=== PATIENT | female | born 1990 | race African-American/Black ===

== ENCOUNTER 2019-12-11 07:37 | Outpatient (RCR) | payer BC, SELFPAY ==
[2019-12-10 16:54] LABS: Hematocrit 32.4 % (37.0-47.0); Hemoglobin 10.7 g/dL (12.0-15.0)
[2019-12-10 17:13] LABS: Glucose 1 Hour PP 50gm Dose 137 mg/dL
[2019-12-10 17:49] LABS: Vitamin D 25 Hydroxy 40.4 ng/mL
[2019-12-10 17:53] LABS: HIV 1/2 Ab P24 Ag Result Negative (Negative)
[2019-12-11] MEDS: RHO(D) IMMUNE GLOBULIN 300 MCG SYRINGE IM (15:01)
== END 2019-12-11 23:59 | disposition home or self-care (01) ==
LOC: ANHLAB 07:37
PROVIDERS: Visit Provider Obstetrics & Gynecology
DX: Z29.13 Encounter for prophylactic Rho(D) immune globulin (principal); Z11.4 Encounter for screening for human immunodeficiency virus [HIV]; O36.0990 Maternal care for other rhesus isoimmunization, unspecified trimester, not applicable or unspecified; Z3A.00 Weeks of gestation of pregnancy not specified
CPT/HCPCS: 36415; 82306; 82947; 85014; 85018; 85461; 86703; 90384; 96372; G0432; J2790

== ENCOUNTER 2019-12-16 08:57 | Outpatient (CLI) | payer BC, SELFPAY ==
[2019-12-16 09:57] LABS: Alanine Aminotransferase 181 U/L (4-35); Albumin Level 3.8 g/dL (3.5-5.1); Alkaline Phosphatase 145 U/L (38-126); Aspartate Amino Transferase 63 U/L (14-36); Bilirubin,Total 0.6 mg/dL (0.2-1.3)
[2019-12-16 10:06] LABS: Glucose Fasting Gestational 82 mg/dL (>/=95)
[2019-12-16 12:19] LABS: Glucose 1 Hour Gest 140 mg/dL (>/=180)
[2019-12-16 12:50] LABS: Glucose 2 Hour Gest 129 mg/dL (>/= 155)
[2019-12-16 13:53] LABS: Glucose 3 Hour Gest 110 mg/dL (>/=140)
[2019-12-23 16:44] LABS: Chenodeoxycholic Acid <0.5 umol/L (< OR = 3.9); Cholic Acid 1.3 umol/L (< OR = 2.8); Deoxycholic Acid <0.5 umol/L (< OR = 2.3); Total Bile Acids <1.5 umol/L (< OR = 8.3)
== END 2019-12-16 08:58 | disposition home or self-care (01) ==
LOC: ANHLAB 09:01
PROVIDERS: PCP Obstetrics & Gynecology; Visit Provider Obstetrics & Gynecology
DX: O26.86 Pruritic urticarial papules and plaques of pregnancy (PUPPP) (principal); Z3A.00 Weeks of gestation of pregnancy not specified; O99.810 Abnormal glucose complicating pregnancy
CPT/HCPCS: 36415; 80076; 82542; 82951; 82952

== ENCOUNTER 2019-12-17 15:17 | Outpatient (RCR) | payer BC, SELFPAY ==
[2019-12-17 16:18] VITALS: BP 105/68; PULSE 102
== END 2020-02-07 14:27 | disposition home or self-care (01) ==
LOC: ANHOBOP 15:17
PROVIDERS: PCP Obstetrics & Gynecology; Visit Provider Obstetrics & Gynecology
DX: O26.613 Liver and biliary tract disorders in pregnancy, third trimester (principal); Z3A.32 32 weeks gestation of pregnancy
CPT/HCPCS: 59025

== ENCOUNTER 2019-12-24 15:58 | Observation (INO) | payer BC, SELFPAY ==
[2019-12-24] VITALS (7 sets, daily range): BP systolic 109–120; BP diastolic 63–74; PULSE 89–103
[2019-12-24] MEDS: TERBUTALINE SULFATE 1 MG/ML VIAL 0.25 MG SUB-Q (17:11)
--- NOTE | 2020-01-01 11:20 | PM.OBTRLD ---
OB - Triage/Final Diagnosis Visit Information Reason for evaluation: threatened labor
== END 2019-12-24 18:45 | disposition home or self-care (01) ==
PROVIDERS: Admitting Provider Obstetrics & Gynecology Gynecology; PCP Obstetrics & Gynecology; Visit Provider Obstetrics & Gynecology Gynecology
DX: O47.9 False labor, unspecified (principal); Z3A.00 Weeks of gestation of pregnancy not specified
CPT/HCPCS: 96372; G0378; G0379; J3105

== ENCOUNTER 2019-12-27 07:43 | Outpatient (CLI) | payer BC, SELFPAY ==
[2019-12-27 08:50] LABS: Alanine Aminotransferase 206 U/L (4-35); Albumin Level 3.9 g/dL (3.5-5.1); Alkaline Phosphatase 157 U/L (38-126); Aspartate Amino Transferase 70 U/L (14-36); Bilirubin,Total 0.4 mg/dL (0.2-1.3)
== END 2019-12-27 07:44 | disposition home or self-care (01) ==
PROVIDERS: PCP Obstetrics & Gynecology; Visit Provider Obstetrics & Gynecology
DX: R79.9 Abnormal finding of blood chemistry, unspecified (principal)
CPT/HCPCS: 36415; 80076

== ENCOUNTER 2020-01-06 16:23 | Outpatient (CLI) | payer BC, SELFPAY ==
[2020-01-06 17:52] LABS: Hepatitis B Surface Antigen Negative (Negative)
[2020-01-06 17:58] LABS: HAV RESULT Negative (Negative); Hepatitis B Core IgM Result Negative (Negative)
[2020-01-06 18:10] LABS: Hepatitis C Virus Antibody Negative (Negative)
== END 2020-01-06 16:24 | disposition home or self-care (01) ==
LOC: ANHLAB 16:26
PROVIDERS: PCP Obstetrics & Gynecology; Visit Provider Obstetrics & Gynecology
DX: O26.613 Liver and biliary tract disorders in pregnancy, third trimester (principal); Z3A.00 Weeks of gestation of pregnancy not specified
CPT/HCPCS: 36415; 80074

== ENCOUNTER 2020-01-13 16:16 | Outpatient (CLI) | payer BC, SELFPAY ==
[2020-01-13 16:45] LABS: Hematocrit 35.6 % (37.0-47.0); Hemoglobin 11.8 g/dL (12.0-15.0); Mean Corpuscular HGB Conc 33.1 g/dl (32-36); Mean Corpuscular Hemoglobin 27.9 pg (26-34); Mean Corpuscular Volume 84.2 fl (80-100); Mean Platelet Volume 9.4 fl (7.4-10.4); Platelet Count Result 319 k/mm3 (150-375); Red Blood Count 4.23 M/mm3 (4.2-5.4); Red Cell Distribution Width 15.3 % (11.5-14.5); White Blood Count 12.2 K/mm3 (4.5-10.0)
[2020-01-13 16:57] LABS: Alanine Aminotransferase 67 U/L (4-35); Alkaline Phosphatase 152 U/L (38-126); Anion Gap 11 mmol/L (8-16); Aspartate Amino Transferase 35 U/L (14-36); Bilirubin,Total 0.4 mg/dL (0.2-1.3); Blood Urea Nitrogen 9 mg/dL (7-17); Calcium 9.5 mg/dL (8.4-10.2); Carbon Dioxide 22 mmol/L (22-30); Chloride 104 mmol/L (98-107); Estimated Glomerular Filt Rate > 60; Glucose 115 mg/dL (65-105); Potassium 3.8 mmol/L (3.4-5.0); Sodium 137 mmol/L (137-145)
== END 2020-01-13 16:17 | disposition home or self-care (01) ==
LOC: ANHLAB 16:18
PROVIDERS: PCP Obstetrics & Gynecology; Visit Provider Obstetrics & Gynecology Gynecology
DX: Z34.93 Encounter for supervision of normal pregnancy, unspecified, third trimester (principal); Z3A.00 Weeks of gestation of pregnancy not specified
CPT/HCPCS: 36415; 80053; 85027

== ENCOUNTER 2020-01-20 07:17 | Inpatient (IN) | payer BC, SELFPAY ==
[2020-01-20] VITALS (154 sets, daily range): BP systolic 87–140; BP diastolic 53–114; PULSE 69–165; TEMP 36.4–36.6; O2SAT 83–100; BMI 28.8
[2020-01-20 08:09] LABS: Basophils Percent Auto 0.2 % (0.2-1.2); Eosinophils Absolute Auto 0.1 K/mm3 (0-0.3); Eosinophils Percent Auto 1.1 % (0-4.4); Hematocrit 36.6 % (37.0-47.0); Hemoglobin 11.9 g/dL (12.0-15.0); Immature Granulocyte Absolute 0.09 K/mm3 (0.00-0.031); Immature Granulocyte Percent A 0.7 % (0-0.5); Lymphocytes Absolute Auto 1.46 K/mm3 (0.9-3.2); Lymphocytes Percent Auto 11.3 % (18.3-44.2); Mean Corpuscular HGB Conc 32.5 g/dl (32-36); Mean Corpuscular Hemoglobin 27.4 pg (26-34); Mean Corpuscular Volume 84.1 fl (80-100); Mean Platelet Volume 9.7 fl (7.4-10.4); Monocytes Percent Auto 7.5 % (2.6-8.5); Neutrophils Absolute Auto 10.2 K/mm3 (1.3-6.7); Neutrophils Percent Auto 79.2 % (45.5-73.1); Platelet Count Result 306 k/mm3 (150-375); Red Blood Count 4.35 M/mm3 (4.2-5.4); Red Cell Distribution Width 15.2 % (11.5-14.5); White Blood Count 12.9 K/mm3 (4.5-10.0)
--- NOTE | 2020-01-20 08:10 | WPDOBADMIT ---
Obstetrics - Admit Note Admission Note: IOL per MFM due to cholestasis of . AROM clear fluid / record reviewed. No pertinent additions to the history and/or any subsequent changes in the physical findings that are not consistent with the expected course of the were found. Additions to the history and/or subsequent changes in the physical findings follow. None.
--- NOTE | 2020-01-20 08:17 | LDADM ---
This patient, Darryl Rojas, was admitted to Labor/Delivery/Recovery 105 on 01/20/20 at 07:17. Plans for labor, pain management and were discussed with patient. Patient/family oriented to hospital policies and general routines including ID bracelet, bed and alarms, visiting hours, pain management, procedures, bathroom and other care routines, personal items, smoking policy, room service/diet and guest tray routines, security routines, and visiting hours. Patient/Family are encouraged to report perceived risks to care and to ask questions if they do not understand what they are told or what they should do. See OBIX for further documentation.
--- NOTE | 2020-01-20 11:04 | WPDANESEPP ---
Anes - Eval Pre Procedure Procedure: labor epidural Date/Time: 01/20/20 11:04 Surgeon: jhon Preop Diagnosis: pain during labor Pre Op Diagnosis: Induction of Labor Patient Data Age: 29 Gender: F Height: 1.52 m Weight: 67 kg Last Vital Signs Temp 36.6 C 01/20/20 10:30 Pulse 83 01/20/20 10:29 BP 109/53 L 01/20/20 10:29 Allergies Allergy/AdvReac Type Severity Reaction Status Date / Time cefaclor [From [facility]] Allergy Intermediate Hives Verified 12/24/19 17:13 Home Medications Medication Instructions Recorded Confirmed Type PNV cmb#95-ferrous fumarate-FA 1 tablet PO DAILY 01/17/20 01/20/20 History [] cholecalciferol (vitamin D3) 50 mcg PO DAILY 01/17/20 01/20/20 History [Vitamin D3] ferrous sulfate 325 mg PO DAILY 01/17/20 01/20/20 History ursodiol 300 mg PO BID 01/17/20 01/20/20 History Laboratory Tests 01/20/20 01/20/20 01/20/20 08:02 08:02 08:02 WBC 12.9 K/mm3 H K/mm3 (4.5-10.0) RBC 4.35 M/mm3 M/mm3 (4.2-5.4) Hgb 11.9 g/dL L g/dL (12.0-15.0) Hct 36.6 % L % (37.0-47.0) MCV 84.1 fl fl (80-100) MCH 27.4 pg pg (26-34) MCHC 32.5 g/dl g/dl (32-36) RDW 15.2 % H % (11.5-14.5) Plt Count 306 k/mm3 k/mm3 (150-375) MPV 9.7 fl fl (7.4-10.4) Immature Gran % (Auto) 0.7 % H % (0-0.5) Neut % (Auto) 79.2 % H % (45.5-73.1) Lymph % (Auto) 11.3 % L % (18.3-44.2) [place] % (Auto) 7.5 % % (2.6-8.5) Eos % (Auto) 1.1 % % (0-4.4) Baso % (Auto) 0.2 % % (0.2-1.2) Lymph # (Auto) 1.46 K/mm3 K/mm3 (0.9-3.2) [place] # (Auto) 1.0 K/mm3 H K/mm3 (0.1-0.6) Eos # (Auto) 0.1 K/mm3 K/mm3 (0-0.3) Baso # (Auto) 0.0 K/mm3 K/mm3 (0.0-0.1) Abs Immat Gran (auto) 0.09 K/mm3 H K/mm3 (0.00-0.031) Absolute Neuts (auto) 10.2 K/mm3 H K/mm3 (1.3-6.7) Absolute Nucleated RBC 0.0 K/mm3 K/mm3 (0.0-0.012) Nucleated RBC % 0.0 % % (0.0-0.2) RPR Pending Blood Type O Negative Antibody Screen Positive Antibody Identification Pending Antigen Identification Pending JASVIR, IgG Interpret Pending JASVIR, Poly Interpret Pending JASVIR, Complement Interp Pending Patient hx anesthesia problems: none Family hx anesthesia problems: none PMFSH Past Medical History Medical History (Updated 01/20/20 @ 11:05 by Malaika Williamson CRNA) Anemia IUP (intrauterine ), incidental Overweight Family History Family History (Updated 01/17/20 @ 14:28 by Nevin Frey RN) Mother Hypertension Grandparent Parkinson disease Social History Social History Smoking status: Never smoker Second hand tobacco smoke exposure: No Substance use: never Gender identity (if verbalized by the patient): Female Spiritual care concerns: No Exam Day of Procedure 01/20/20 11:04
[2020-01-20 12:17] LABS: Rapid Plasma Reagin Non-Reactive (NonReactive)
[2020-01-20] MEDS: OXYTOCIN 30 UNITS/NS 500 ML 30 UNITS/500 ML BAG IV CONT (15:36)
[2020-01-20] MEDS: LACTATED RINGERS 1,000 ML 125 ML IV CONT ×3 (15:37→20:08)
[2020-01-20] MEDS: ONDANSETRON INJ 4 MG/2 ML VIAL IV PUSH (20:09)
--- NOTE | 2020-01-20 22:56 | PM.OBPRVD ---
OB - Delivery Note Procedure Delivery date: 01/20/20 events: Labor Induction Intrapartal events: None Induction method: AROM and per pitocin protocol Delivery monitor: external FHT and external uterine Route of delivery: Laceration Description: Vaginal - 1st Degree Specimen: Yes Estimated blood loss (mL): 200 Anesthesia type: Epidural Disposition: floor Narrative: Induction for cholestasis Baby Date of : 01/20/20 Time of : 22:38 Weeks of gestation at delivery: 37 Infant gender: Female Weight (pounds): 5 Weight (ounces): 14 presentation: vertex position: Left Occiput Anterior Placenta delivery description: Spontaneous cord vessel description: 3 Vessels score one minute: 8 score five minutes: 9
[2020-01-20] MEDS: OXYTOCIN 30 UNITS/NS 500 ML 30 UNITS/500 ML BAG 125 UNITS IV CONT (23:14)
[2020-01-21] VITALS (9 sets, daily range): BP systolic 98–121; BP diastolic 60–69; PULSE 69–101; RESP 18–20; TEMP 36.6–36.9; O2SAT 98–99
[2020-01-21] MEDS: WITCH HAZEL 40 PADS 1 PAD TOPICAL (01:18)
[2020-01-21] MEDS: BENZOCAINE 20% AER SPR (*SP) 56 GM CAN 1 SPRAY TOPICAL (01:19)
--- NOTE | 2020-01-21 01:25 | OBPPTRN ---
Patient transferred to post room # 288 via wheelchair. Support person and present. Oriented to unit, room, information board, rooming in, admission packet and security measures. Patient verbalizes understanding.
[2020-01-21] MEDS: ACETAMINOPHEN 325 MG TABLET 650 MG PO ×3 (01:59→17:00)
[2020-01-21] MEDS: IBUPROFEN 600 MG TABLET PO ×3 (03:56→17:01)
[2020-01-21 05:56] LABS: Hematocrit 34.4 % (37.0-47.0); Hemoglobin 11.1 g/dL (12.0-15.0)
--- NOTE | 2020-01-21 07:44 | WPDANLDPN2 ---
Anes-Prog Note L&D Date/Time: 01/21/20 07:44 Comfortable throughout: labor and delivery Neuraxial method: epidural Epidural/Spinal procedure site: clean & non-tender Neuro status: Neuro function grossly intact. Cardiovascular status: normal Respiratory status: normal Airway patency: baseline Mental status: baseline Post-Op hydration status: normal Vital Signs: Last Vital Signs Temp 36.9 C 01/21/20 01:30 Pulse 82 01/21/20 01:30 Resp 18 01/21/20 01:30 BP 121/69 01/21/20 01:30 Pulse Ox 98 01/21/20 01:30 Pain score (VAS): 03/19 I/O: Intake & Output 01/20/20 01/20/20 01/21/20 15:59 23:59 07:59 Intake Total 3100 500 Output Total 75 Balance 3100 425 Post-procedural complaints: none Patient feedback: Patient satisfied with anesthetic care.
--- NOTE | 2020-01-21 09:45 | PC.NURSE ---
Consulted with patient, mother reports infant has had a few good feedings since . has been sleepy and in nursery for evaluation, now 5 hours from last feeding. Observed has a tight frenulum. Reviewed feeding cues, frequencies, duration of feedings, feeding elimination flow sheet, and signs of adequate intake. Demonstrated stimulation techniques to wake for feeding. Assisted with infant to breast. Reviewed positioning/alignment in cross cradle, holding breast in U hold and guided asymmetrical latch on. Several attempts before infant was able to latch correctly. Infant nursed eagerly, with short chewy draws with occasional swallowing noted. Mother reports slight tenderness with feeding. Reviewed signs of a correct latch, effective nursing and suck swallow ratio. Infant was able to maintain latch without discomfort to mother. Nipple care reviewed. Suggested to stimulate while feeding to keep awake and nursing effectively for increased intake and to assist with maintaining deep latch. Instructed mother to call out for RN assistance if she is unable to latch for feeding or she has discomfort with nursing. Instructed feeding should be initiated three hours from start of last feeding or if feeding cues are noted before. Mother voiced understanding of information shared. Report to primary RN concerning tight frenulum.
--- NOTE | 2020-01-21 09:56 | PC.NURSE ---
Addendum entered by Jose Alberto King RN 01/21/20 09:57: amended note for actual time of 0845 Original Note: Attempted introductions to pt but was sound asleep. Introductions made and plan of care discussed with fob and he verbalized understanding of such care
--- NOTE | 2020-01-21 10:00 | PC.NURSE ---
Discussed how the frenulum may impact with mother's comfort and ability to empty breast. Advised parents ICP will be notified and they may discuss possible frenulectomy.
[2020-01-21] MEDS: DOCUSATE SODIUM 100 MG CAPSULE PO ×2 (10:19→17:00)
[2020-01-21] MEDS: LANOLIN (LANSINOH) 7.5 GM CREAM 1 APPLIC TOPICAL (10:20)
[2020-01-21] MEDS: MULTIVIT/MIN/PREN/FOL AC/IRON TABLET 1 TAB PO (10:20)
[2020-01-21] MEDS: ursodioL 300 MG CAPSULE PO ×2 (10:33→17:00)
--- NOTE | 2020-01-21 12:25 | PM.OBPNVD ---
OB - PN: Subj Subjective Date/time seen: 01/21/20 12:25 S: doing okay still having some itching spells otherwise mild back pain and minimal bleeding. OB - PN: Obj Data Labs CBC & Chem 7: 01/21/20 04:55 Labs: Laboratory Results - last 24 hr 01/20/20 01/21/20 01/21/20 08:02 04:55 04:55 Hgb 11.1 L Hct 34.4 L Blood Type O Negative Antibody Screen TNP Antibody Identification Passive Due to RH Imm Glob Antigen Identification Cancelled JASVIR, IgG Interpret Not Performed JASVIR, Poly Interpret Negative JASVIR, Complement Interp Not Performed Screen Negative Baby's Blood Type O pos Baby's JASVIR Positive Doses of RhIg Required 1 OB - PN A/P Assessment and Plan (1) (normal spontaneous vaginal delivery): Code(s): O80 - Encounter for full-term uncomplicated delivery Status: Acute Assessment and Plan: continue with post care. patient to continue actigal for 1 week re check liver enzymes pp f/u in 6 weeks (2) Cholestasis during : Code(s): O26.619 - Liver and biliary tract disorders in , unspecified trimester; K83.1 - Obstruction of bile duct Status: Acute Time Spent With Patient Time: Total time spent is greater than 50% in coordination of care (as documented) at patient's floor/unit and/or counseling patient: Exam GI: Other: uterus firm below umbilicus
--- NOTE | 2020-01-21 14:10 | PC.NURSE ---
Mother called out for assist with feeding. Infant has had a frenulectomy. Assisted with to breast. Reviewed positioning/alignment in cross cradle, holding breast in U hold and guided asymmetrical latch on. Several attempts before was able to latch correctly. Infant nursed eagerly, with long steady draws draws with frequent swallowing noted. Mother reports slight tenderness with feeding. Reviewed signs of a correct latch, effective nursing and suck swallow ratio. Infant was able to maintain latch without discomfort to mother. Nipple care reviewed. Suggested to stimulate infant while feeding to keep awake and nursing effectively for increased intake and to assist with maintaining deep latch. Instructed mother to call out for RN assistance if she is unable to latch for feeding or she has discomfort with nursing. Instructed feeding should be initiated three hours from start of last feeding or if feeding cues are noted before. Mother voiced understanding of information shared. Report to primary RN concerning tight frenulum.
[2020-01-22] MEDS: ACETAMINOPHEN 325 MG TABLET 650 MG PO (00:30)
[2020-01-22] MEDS: IBUPROFEN 600 MG TABLET PO (00:30)
[2020-01-22 08:45] VITALS: BP 101/71; PULSE 80; RESP 16; TEMP 36.6; O2SAT 99
[2020-01-22] MEDS: MULTIVIT/MIN/PREN/FOL AC/IRON TABLET 1 TAB PO (09:49)
[2020-01-22] MEDS: DOCUSATE SODIUM 100 MG CAPSULE PO (09:49)
[2020-01-22] MEDS: ursodioL 300 MG CAPSULE PO (09:49)
[2020-01-22] MEDS: RHO(D) IMMUNE GLOBULIN 300 MCG SYRINGE IM (11:27)
--- NOTE | 2020-01-22 11:52 | PM.OBPNVD ---
OB - PN: Subj Subjective Date/time seen: 01/22/20 11:52 Doing well no complaints baby staying for lights OB - PN: Obj Data Labs CBC & Chem 7: 01/21/20 04:55 Labs: Laboratory Results - last 24 hr 01/21/20 04:55 Blood Type O Negative Antibody Screen TNP Screen Negative Baby's Blood Type O pos Baby's JASVIR Positive Doses of RhIg Required 1 OB - PN A/P Assessment and Plan (1) Cholestasis during : Code(s): O26.619 - Liver and biliary tract disorders in , unspecified trimester; K83.1 - Obstruction of bile duct Status: Acute (2) (normal spontaneous vaginal delivery): Code(s): O80 - Encounter for full-term uncomplicated delivery Status: Acute Assessment and Plan: d/c home f/u in 6 weeks. Time Spent With Patient Time: Total time spent is greater than 50% in coordination of care (as documented) at patient's floor/unit and/or counseling patient: Exam : Other: ff below umbilicus
[2020-01-22 18:43] VITALS: BP 132/90; PULSE 75; RESP 16; TEMP 36.3; O2SAT 100
[2020-01-24 07:57] VITALS: BP 125/85; PULSE 85; RESP 16; TEMP 36.9; O2SAT 99
--- NOTE | 2020-02-17 12:01 | PM.OBDSVD ---
DS: Admitting Diagnosis Admitting Diagnosis Admitting Diagnosis: Induction of Labor DS: Discharge Diagnosis Discharge Diagnosis (1) Cholestasis during : Code(s): O26.619 - Liver and biliary tract disorders in , unspecified trimester; K83.1 - Obstruction of bile duct Status: Acute (2) (normal spontaneous vaginal delivery): Code(s): O80 - Encounter for full-term uncomplicated delivery Status: Acute OB - DS: Summary OB Procedures : NST and Ultrasound OB Procedures Intrapartum: Spontaneous Vag Delivery OB Procedures: : None Time Spent with Patient Time attestation: Total time spent providing and/or coordinating discharge services: DS: Data Data Completed and Pending Completed studies during hospitalization: Pending at discharge 01/21/20 08:15 Surgical [PTH] Routine Discharge Plan Discharge Attending physician on discharge: Andrea Vergara Discharging Clinician: Andrea Vergara Patient Disposition: Home, Self-Care Activity: may shower Diet: regular Discharge Instructions: Education: Mom and Baby Guide Given to: Mother Follow-Up: Call your delivering provider's office for an appointment to be seen in: 6 Weeks Mom and baby should come to the [facility] for the follow-up appointment. Appointment Date/Time: when baby's f/u visit is scheduled What to expect at your follow-up visit: Blood Pressure Check Physical Assessment Call [phone] if you are unable to keep your appointment time. BREAST CARE: * Wear a snug supportive bra. * For engorgement discomfort: Breast Feeding: * Apply warm moist washcloths * Express milk as needed to relieve engorgement * Wear loose clothing * For sore nipples: * Identify correct latch-on * Apply warm moist washcloths before and after nursing * Air dry nipples after nursing * May apply Lansinoh cream to nipples EPISIOTOMY/PERINEAL CARE: * Until bleeding stops, use your jose maria bottle after urinating * Change your pad frequently throughout the day * You may take sitz baths several times a day (fill your bathtub with warm water and soak for 20 minutes.) Do NOT bathe in the water * No tub baths until seen by your physician - You may shower ACTIVITY: * Rest as much as possible. * Do not exercise or lift anything heavier than your baby (such as laundry or other children.) * Avoid stairs or driving as much as possible. * Do not put anything into the vagina. No douching, tampons, or sexual activity until seen by physician. NOTIFY PHYSICIAN IF YOU HAVE ANY QUESTIONS OR IF ANY OF THE FOLLOWING SYMPTOMS OCCUR: * If your episiotomy or incision becomes red, swollen, or more painful than what you have experienced in the hospital. * If your vaginal bleeding becomes foul smelling. * If your vaginal bleeding becomes more heavy than a period or if your bleeding changes from pink to bright red. However, you may pass an occasional walnut-sized clot once or twice for the first week . * If you experience a sharp, shooting pain in you calves. * If you discover a hard, reddened area on your breast or if you experience flu-like symptoms. *Temperature of 100.4 or higher DIET: * Eat regular, well-balanced meals. * Drink plenty of fluids daily. If , drink to thirst. Stand Alone Forms: General Discharge Information Follow-up/Referrals: Andrea Vergara MD [Physician] - 6 Weeks Discharge Medications: New ibuprofen 600 mg Tablet 600 mg PO Q6H PRN (Reason: Cramping) Qty: 60 RF: 0 Continued ferrous sulfate 325 mg (65 mg iron) Tablet 325 mg PO DAILY RF: 0 ursodiol 300 mg Capsule 300 mg PO BID RF: 0 cholecalciferol (vitamin D3) [Vitamin D3] 50 mcg (2,000 unit) Tablet 50 mcg PO DAILY RF: 0 PNV cmb#95-ferrous fumarate-FA [] 28 mg iron- 800 mcg Ta
== END 2020-01-22 19:00 | disposition home or self-care (01) | DRG 805 ==
LOC: ANHLDR 22:56 → ANHOB2 01-21 01:27
PROVIDERS: Admitting Provider Obstetrics & Gynecology; Visit Provider Obstetrics & Gynecology
DX: O26.62 Liver and biliary tract disorders in childbirth (principal); K83.1 Obstruction of bile duct; Z37.0 Single live birth; Z3A.37 37 weeks gestation of pregnancy; O70.0 First degree perineal laceration during delivery
CPT/HCPCS: 36415; 85014; 85018; 85025; 85461; 86592; 86850; 86880; 86900; 86901; 86902; 88307; 90384; A9270; J2405; J2590; J2790; J2795; J7120